=== PATIENT | female | born 1990 | race Caucasian/White ===

== ENCOUNTER 2022-05-03 17:39 | Emergency (ER) | payer OTHER ==
[~2022-05-03] VITALS: Ht 149.9 cm; Wt 81.6 kg
[2022-05-03] MEDS ORDERED: IBUPROFEN 600 MG TAB PO STA (19:22)
[2022-05-03] MEDS ORDERED: ONDANSETRON HCL 4 MG ORAL DISINTEGRATING TAB PO ONE (19:30)
[2022-05-03] MEDS ORDERED: IBUPROFEN 600 MG TAB ONE (20:30)
[2022-05-03] MEDS ORDERED: ONDANSETRON HCL 4 MG ORAL DISINTEGRATING TAB ONE (20:30)
[2022-05-03] MEDS ORDERED: ONDANSETRON ODT4 MG PO (21:27)
== END 2022-05-03 21:29 | disposition home or self-care (01) ==
LOC: FSED 17:46
DX: S00.33XA Contusion of nose, initial encounter (principal); W21.05XA Struck by basketball, initial encounter; Y93.67 Activity, basketball; Y92.89 Other specified places as the place of occurrence of the external cause
CPT/HCPCS: 70450; 70486; 81025; 99283; Q0126